=== PATIENT | male | born 1995 | race African-American/Black ===

== ENCOUNTER 2018-12-17 16:45 | Emergency (ER) | payer OTHER ==
[~2018-12-17] VITALS: Ht 170.2 cm; Wt 79.4 kg
== END 2018-12-17 17:52 | disposition home or self-care (01) ==
LOC: ER 16:45
DX: S00.83XA Contusion of other part of head, initial encounter (principal); S40.012A Contusion of left shoulder, initial encounter; S80.01XA Contusion of right knee, initial encounter; V49.9XXA Car occupant (driver) (passenger) injured in unspecified traffic accident, initial encounter; Y93.89 Activity, other specified; Y92.488 Other paved roadways as the place of occurrence of the external cause; Y99.8 Other external cause status